=== PATIENT | female | born 1990 | race Caucasian/White ===

== ENCOUNTER 2016-12-01 12:08 | Emergency (ER) | payer BC ==
[~2016-12-01] VITALS: Ht 149.9 cm; Wt 100.0 kg
[~2016-12-01 12:08] MED LIST: AMOXIL500 MG OR; EFFEXOR37.5 MG PO; LORTAB 7.57.5 MG PO; NO HOME MEDS; PROTONIX40 M2 PO; ULTRAM50 MG OR
[2016-12-01 13:07] LABS: URINE BILIRUBIN - DIPSTICK NEGATIVE (NEGATIVE); URINE BLOOD DIPSTICK NEGATIVE (NEGATIVE); URINE CLARITY CLEAR; URINE COLOR YELLOW; URINE GLUCOSE - DIPSTICK NEGATIVE (NEGATIVE); URINE KETONE NEGATIVE (NEGATIVE); URINE LEUK ESTERASE TRACE (NEGATIVE); URINE NITRITE - DIPSTICK NEGATIVE (Negative); URINE PROTEIN - DIPSTICK NEGATIVE (NEG-TRACE); URINE UROBILINOGEN - DIPSTICK 0.2 E.U./dL (0.2)
[2016-12-01 13:36] LABS: HEMATOCRIT 36.7 % (37.0-47.0); HEMOGLOBIN 12.5 g/dl (12.0-16.0); IMMATURE GRANULOCYTES 0.4 % (0.0-1.0); MEAN CELL VOLUME 88.6 fL CALC (80.0-100.0); MEAN CORPUSCULAR HGB 30.2 pG CALC (26.0-32.0); MEAN CORPUSCULAR HGB CONC 34.1 g/L CALC (32.0-36.0); NEUT# 6.85 thou/uL (2.00-7.15); RED BLOOD COUNT 4.14 mill/uL (4.20-5.60)
[2016-12-01 14:48] VITALS: BP 119/74
== END 2016-12-01 14:48 | disposition home or self-care (01) | DRG 781 ==
LOC: ED 12:08
PROVIDERS: Emergency Medicine
DX: O26.891 Other specified pregnancy related conditions, first trimester (principal); S60.221A Contusion of right hand, initial encounter; Z3A.12 12 weeks gestation of pregnancy; W10.9XXA Fall (on) (from) unspecified stairs and steps, initial encounter; Y92.008 Other place in unspecified non-institutional (private) residence as the place of occurrence of the external cause

== ENCOUNTER 2018-09-20 20:21 | Emergency (ER) | payer SELFPAY ==
[~2018-09-20] VITALS: Ht 149.9 cm; Wt 91.0 kg
[~2018-09-20 20:21] MED LIST changes: +FIORICET PO; +PRE-NATAL PO; +ZANTAC150 M1 PO
[2018-09-20] MEDS ORDERED: SUMATRIPTAN25 MG PO (20:43)
[2018-09-20 21:19] LABS: HEMATOCRIT 40.9 % (37.0-47.0); HEMOGLOBIN 13.4 g/dl (12.0-16.0); IMMATURE GRANULOCYTES 0.3 % (0.0-5.0); MEAN CELL VOLUME 88.1 fL CALC (80.0-100.0); MEAN CORPUSCULAR HGB 28.9 pG CALC (26.0-32.0); MEAN CORPUSCULAR HGB CONC 32.8 g/L CALC (32.0-36.0); NEUT# 5.38 thou/uL (2.00-7.15); RED BLOOD COUNT 4.64 mill/uL (4.20-5.60); RED CELL DISTRI WIDTH 13.5 % (11.5-15.5)
[2018-09-20 21:30] LABS: ALBUMIN 4.3 g/dL (3.2-5.0); ALKALINE PHOSPHATASE 57 u/l (38-126); ANION GAP 14 (6-22 (CALC)); BILIRUBIN, TOTAL 0.4 mg/dL (0.0-1.4); BUN 19 mg/dL (7-17); BUN/CREATININE RATIO 16 (12-20 (CALC)); CARBON DIOXIDE 25 mmol/l (22-30); CHLORIDE 104 mmol/l (95-108); CREATININE 1.2 mg/dL (0.5-1.0); GFR 54 ML/MIN (>=60 (CALC)); GFR FOR AFR.AMER. > 60 ML/MIN (>=60 (CALC)); POTASSIUM 4.3 mmol/l (3.5-5.1); SGOT/AST 26 u/l (14-36); SODIUM 138 mmol/l (137-146); TOTAL PROTEIN 7.2 g/dL (6.3-8.2)
[2018-09-20 21:42] LABS: MYOGLOBIN 20 ng/mL (0 - 62)
[2018-09-20 22:30] VITALS: BP 138/70
== END 2018-09-20 22:30 | disposition home or self-care (01) | DRG 918 ==
LOC: ED 20:21
PROVIDERS: Family Medicine
DX: T39.8X5A Adverse effect of other nonopioid analgesics and antipyretics, not elsewhere classified, initial encounter (principal); R07.89 Other chest pain; R06.02 Shortness of breath; R51 Headache; Y92.009 Unspecified place in unspecified non-institutional (private) residence as the place of occurrence of the external cause

== ENCOUNTER 2019-03-11 17:46 | Emergency (ER) | payer SELFPAY ==
[~2019-03-11] VITALS: Ht 149.9 cm; Wt 90.0 kg
[~2019-03-11 17:46] MED LIST changes: +SUMATRIPTAN25 MG PO
[2019-03-11 18:12] LABS: URINE BILIRUBIN - DIPSTICK NEGATIVE (NEGATIVE); URINE BLOOD DIPSTICK TRACE-INTACT (NEGATIVE); URINE COLOR YELLOW; URINE GLUCOSE - DIPSTICK NEGATIVE (NEGATIVE); URINE KETONE NEGATIVE (NEGATIVE); URINE NITRITE - DIPSTICK NEGATIVE (Negative); URINE PH 6.5 (4.5-8.0); URINE PROTEIN - DIPSTICK 100 mg/dL (NEG-TRACE); URINE SPECIFIC GRAVITY 1.025
[2019-03-11 18:22] LABS: URINE LEUK ESTERASE SMALL (NEGATIVE)
[2019-03-11 18:31] LABS: URINE BACTERIA RARE hpf; URINE SQUAMOUS EPITHELIAL CELL FEW EPI/hpf (0-FEW); URINE WBC 20-50 WBC/hpf (0-5)
[2019-03-11] MEDS ORDERED: KEFLEX500 M1 PO (18:44)
[2019-03-11] MEDS ORDERED: PYRIDIUM200 MG PO (18:44)
[2019-03-11] MEDS ORDERED: TESSALON PERLE100 MG PO (18:44)
[2019-03-11 18:50] VITALS: BP 133/88
== END 2019-03-11 18:50 | disposition home or self-care (01) | DRG 153 ==
LOC: ED 17:46
DX: J06.9 Acute upper respiratory infection, unspecified (principal); N39.0 Urinary tract infection, site not specified

== ENCOUNTER 2019-07-13 14:22 | Emergency (ER) | payer OTHER ==
[~2019-07-13] VITALS: Ht 149.9 cm; Wt 100.0 kg
[~2019-07-13 14:22] MED LIST changes: +KEFLEX500 M1 PO; +PYRIDIUM200 MG PO; +TESSALON PERLE100 MG PO
[2019-07-13] MEDS ORDERED: IBUPROFEN600 MG PO (16:28)
[2019-07-13] MEDS ORDERED: FLEXERIL PO (16:28)
[2019-07-13 16:30] VITALS: BP 129/78
== END 2019-07-13 16:30 | disposition home or self-care (01) | DRG 605 ==
LOC: ED 14:22
DX: S40.011A Contusion of right shoulder, initial encounter (principal); W20.8XXA Other cause of strike by thrown, projected or falling object, initial encounter; Y92.89 Other specified places as the place of occurrence of the external cause; Y99.0 Civilian activity done for income or pay; S29.012A Strain of muscle and tendon of back wall of thorax, initial encounter

== ENCOUNTER 2021-12-28 14:56 | Emergency (ER) | payer BC ==
[~2021-12-28] VITALS: Ht 149.9 cm; Wt 100.0 kg
[~2021-12-28 14:56] MED LIST changes: +FLEXERIL PO; +IBUPROFEN600 MG PO
[2021-12-28 15:46] VITALS: BP 138/95
[2021-12-28 16:26] LABS: URINE BILIRUBIN - DIPSTICK NEGATIVE (NEGATIVE); URINE BLOOD DIPSTICK NEGATIVE (NEGATIVE); URINE COLOR YELLOW; URINE GLUCOSE - DIPSTICK NEGATIVE (NEGATIVE); URINE KETONE NEGATIVE (NEGATIVE); URINE LEUK ESTERASE NEGATIVE (NEGATIVE); URINE PROTEIN - DIPSTICK 30 mg/dL (NEG-TRACE); URINE SPECIFIC GRAVITY >=1.030; URINE UROBILINOGEN - DIPSTICK 0.2 E.U./dL (0.2)
[2021-12-28 16:27] LABS: URINE NITRITE - DIPSTICK NEGATIVE (Negative)
[2021-12-28 16:33] LABS: URINE RBC 0-2 RBC/hpf (0-5); URINE SQUAMOUS EPITHELIAL CELL MODERATE EPI/hpf (0-FEW)
[2021-12-28 17:18] VITALS: BP 133/83
[2021-12-28] MEDS ORDERED: ONDANSETRON4 MG PO (17:28)
[2021-12-28] MEDS ORDERED: FIORICET PO (17:28)
[2021-12-28] MEDS ORDERED: KEFLEX500 MG PO (17:28)
[2021-12-28 17:30] VITALS: BP 119/72
[2021-12-28 17:34] VITALS: BP 119/72
== END 2021-12-28 17:51 | disposition home or self-care (01) | DRG 103 ==
LOC: ED 14:56
PROVIDERS: Emergency Medicine
DX: G43.909 Migraine, unspecified, not intractable, without status migrainosus (principal); N39.0 Urinary tract infection, site not specified

== ENCOUNTER 2023-03-08 12:56 | Emergency (ER) | payer OTHER ==
[2023-03-08] VITALS (11 sets, daily range): BP systolic 115–149; BP diastolic 69–107
[~2023-03-08] VITALS: Ht 149.9 cm; Wt 113.0 kg
[~2023-03-08 12:56] MED LIST changes: +KEFLEX500 MG PO; +ONDANSETRON4 MG PO
[2023-03-08 14:04] LABS: BASO% 0.3 % (0-3); EOS% 1.1 % (0-8); HEMATOCRIT 43.7 % (37.0-47.0); HEMOGLOBIN 14.1 g/dl (12.0-16.0); IMMATURE GRANULOCYTES 0.1 % (0.0-5.0); LYMPH% 22.1 % (15-41); MEAN CELL VOLUME 91.2 fL CALC (80.0-100.0); MEAN CORPUSCULAR HGB 29.4 pG CALC (26.0-32.0); MEAN CORPUSCULAR HGB CONC 32.3 g/dL CAL (32.0-36.0); MONO% 7.5 % (2-13); NEUT# 5.23 thou/uL (2.00-7.15); NEUT% 68.9 % (42-76); RED BLOOD COUNT 4.79 mill/uL (4.20-5.60); RED CELL DISTRI WIDTH 12.8 % (11.5-15.5)
[2023-03-08 14:29] LABS: ALBUMIN 4.5 g/dL (3.2-5.0); ALKALINE PHOSPHATASE 56 u/l (38-126); ANION GAP 16 (6-22 (CALC)); BILIRUBIN, TOTAL 0.9 mg/dL (0.02-1.3); BUN 12 mg/dL (7-17); BUN/CREATININE RATIO 17 (12-20 (CALC)); CARBON DIOXIDE 21 mmol/l (22-30); CHLORIDE 105 mmol/l (95-108); CREATININE 0.7 mg/dL (0.5-1.0); GFR FOR AFR.AMER. > 60 ML/MIN (>=60 (CALC)); GFR OTHER RACES > 60 ML/MIN (>=60 (CALC)); POTASSIUM 3.9 mmol/l (3.5-5.1); SGOT/AST 38 u/l (14-36); SODIUM 138 mmol/l (137-146); TOTAL PROTEIN 7.7 g/dL (6.3-8.2)
[2023-03-08 15:08] LABS: URINE BILIRUBIN - DIPSTICK NEGATIVE (NEGATIVE); URINE BLOOD DIPSTICK MODERATE (NEGATIVE); URINE COLOR YELLOW; URINE GLUCOSE - DIPSTICK NEGATIVE (NEGATIVE); URINE KETONE NEGATIVE (NEGATIVE); URINE PROTEIN - DIPSTICK NEGATIVE (NEG-TRACE); URINE UROBILINOGEN - DIPSTICK 0.2 E.U./dL (0.2)
[2023-03-08 15:10] LABS: URINE LEUK ESTERASE MODERATE (NEGATIVE); URINE NITRITE - DIPSTICK NEGATIVE (Negative)
[2023-03-08 15:18] LABS: URINE SQUAMOUS EPITHELIAL CELL FEW EPI/hpf (0-FEW)
[2023-03-08] MEDS ORDERED: NITROFURANTN100 M2 PO (15:37)
[2023-03-08] MEDS ORDERED: TRAMADOL HYDROC50 M1 PO (15:38)
== END 2023-03-08 16:04 | disposition home or self-care (01) | DRG 392 ==
LOC: ED 12:56
PROVIDERS: Family Medicine
DX: R10.11 Right upper quadrant pain (principal); N39.0 Urinary tract infection, site not specified
CPT/HCPCS: Q9967